=== PATIENT | male | born 1980 | race Caucasian/White ===

== ENCOUNTER 2016-10-06 08:10 | Inpatient (IN) | payer BC ==
[~2016-10-06] VITALS: Ht 172.7 cm; Wt 61.2 kg
[~2016-10-06 08:10] MED LIST: GABAPENTIN300 M1 PO; IBU-8800 MG PO; KEPPRA 500 MG500 MG PO; LORTAB 5/500 501 TAB PO; NEURONTIN 300M300 MG PO; PERCOCET 325 MG1 TA3 PO; PERCOCET 5/3251 EACH PO; PRILOSEC20 M1 PO; ZANTAC 150150 MG PO; ZITHROMAX 250M250 MG PO
[2016-10-06 08:55] VITALS: BP 138/71
[2016-10-06] MEDS ORDERED: VENTOLIN H0.09 MG/AC IH (09:19)
[2016-10-06 09:46] VITALS: BP 138/71
--- NOTE | 2016-10-06 10:24 | PHARMACY CLINIC NOTE ---
Patient Demographics Patient Demographics Admission date: 10/06/16 Date: 10/06/16 Time: 1023 Allergies Coded Allergies: levetiracetam (10/04/16) tramadol (10/04/16) HEIGHT- FT: 5 IN: 8.00 K.236 VTE General Information Disclaimer The following section includes nursing documentation that has been pulled in for pharmacy review. Patient's VTE score: 1 Patient's VTE Risk: VERY LOW RISK Clinical trial participant? No VTE prophylaxis [id number] VTE prophylaxis ordered? Yes Type of prophylaxis/treatment: VITOR at 1023
--- NOTE | 2016-10-06 11:27 | HISTORY AND PHYSICAL REPORT ---
Demographics: Admit date: 10/06/16 Chief complaint: Pneumonia/Pleuritic chest pain PRIMARY DIAGNOSIS: PNEUMONIA Allergies: Coded Allergies: levetiracetam (10/04/16) tramadol (10/04/16) History of present illness: History of present illness: 35 year old male diagnosed with RLL pneumonia on Oct 03 in office After presenting with fever to 101, chills, cough, pleuritic chest pain. Pneumonia was confirmed with x-ray. Patient was started on azithromycin. 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 Chest x-ray at that timeshowed a more dense consolidated right lower lobe pneumonia. I had the patient follow-up in my office. Despite room air sats in the mid 90s the patient admittedto not feeling any better in regards to his breathlessness or pain. Decision was made to admit the patient for IV antibiotics as he had failed outpatient treatment of his right lower lobe pneumonia. White blood cell count was elevated at 17,000. Past medical history: Family HX Family Hx Insignificant No Diabetes Yes CAD No Hypertension No Hyperlipidemia No Cancer No TB No Immunization HX DT/Tetanus 01/13/12 Flu NEVER Pneumonia NEVER TB Test in last year No General CAD? No Angina: No [place]: No Hypertension? No Hyperlipidemia? No CHF? No DVT? No PE? No COPD? No Asthma? No Anemia? No GERD? No Gastric ulcers? No GI Bleed? No Hernia? No Thyroid Problems? No Hypothyroidism? No CVA? No Seizures? Yes Diabetes? No Renal Insuffiency? No UTI? No Stones? Yes BPH? No GB Disease: No Nephritic Syndrome? No Asplenia? No Hepatitis? No Sickle Cell Disease? No Arthritis? No Migraines? No Cataracts? No Glaucoma? No MRSA? No HIV? No TB? No Anxiety? No Depression? Yes Cancer? No More? No Additional hx: unspecified Muscular Dystrophy Chronic Bilateral Leg Pain Past Surgical HX Previous Surgery?Y Appendix MUSCLE BIOPSY Current home meds: Reported Medications Gabapentin 300 MG PO BID #90 Azithromycin (Zithromax 250 Mg) 250 MG PO DAILY ALBUTEROL (Ventolin Hfa) 1 PUFF IH Q6H6 Social Hx: Smoking HX Tobacco No Alcohol Alcohol: No Hx of Drug Use Drug Use? No Review of systems: Constitutional chills, fever, weakness. Respiratory see HPI. Cardiovascular chest pain Gastrointestinal/Abdominal nausea Genitourinary no symptoms reported. Musculoskeletal back pain. Neurological Yes: no symptoms reported. Exam: Admission vital signs: 1ST Vital Signs Result Date Time Pulse Ox 89 10/06 854 O2 Delivery ROOM AIR 10/06 854 B/P 138/71 10/06 854 Temp 98.0 10/06 854 Pulse 96 10/06 854 Resp 18 10/06 854 O2 Flow Rate 2 10/06 0940 Additional information: Patient is pale appearing. Breathing is shallow. Deep breath causes obvious pain. Ear, nose, throat exam is unremarkable. Lungs have absent breath sounds in the right lung base. Heart is mildly tachycardic but without murmurs. Extremities are warm to the touch. Abdomen is thin and soft. The patient has no focal neurologic deficits Plan: Problem List 1. CAP (community acquired pneumonia) Plan: 1. IV levaquin and vancomycin to cover the possibility of MRSA 2. Sputum/Blood Cultures 3. Serial CBC 4. Toradol and Morphine for pain control
--- NOTE | 2016-10-06 12:20 | CONSULT NOTE ---
Pharmacokinetic Consult Date of consult: 10/06/16 Time of consult: 1217 Referring provider: DR. TRUJILLO Reason for consult: VANCOMYCIN DOSING Allergies: Coded Allergies: levetiracetam (10/04/16) tramadol (10/04/16) Home Medications: Reported Medications Gabapentin 300 MG PO BID #90 Azithromycin (Zithromax 250 Mg) 250 MG PO DAILY ALBUTEROL (Ventolin Hfa) 1 PUFF IH Q6H6 Height (feet): 5 Height (inches): 8.00 Medical History: CAD? No Angina: No [place]: No Hypertension? No Hyperlipidemia? No CHF? No DVT? No PE? No COPD? No Asthma? No Anemia? No GERD? No Gastric ulcers? No GI Bleed? No Hernia? No Thyroid Problems? No Hypothyroidism? No CVA? No Seizures? Yes Diabetes? No Renal Insuffiency? No UTI? No Stones? Yes BPH? No GB Disease: No Nephritic Syndrome? No Asplenia? No Hepatitis? No Sickle Cell Disease? No Arthritis? No Migraines? No Cataracts? No Glaucoma? No MRSA? No HIV? No TB? No Anxiety? No Depression? Yes Cancer? No More? No Additional hx: unspecified Muscular Dystrophy Chronic Bilateral Leg Pain Labs: SRCR=1.0 Problem List: 1. CAP (community acquired pneumonia) Plan: BASED ON PATIENT FACTORS, RECOMMEND VANCOMYCIN 1250 MG IV Q12H. WILL OBTAIN VANCOMYCIN TROUGH LEVEL AND ADJUST APPROPRIATE. at 8751
--- NOTE | 2016-10-06 12:20 | CONSULT NOTE ---
Pharmacokinetic Consult Date of consult: 10/06/16 Time of consult: 1217 Referring provider: DR. TRUJILLO Reason for consult: VANCOMYCIN DOSING Allergies: Coded Allergies: levetiracetam (10/04/16) tramadol (10/04/16) Home Medications: Reported Medications Gabapentin 300 MG PO BID #90 Azithromycin (Zithromax 250 Mg) 250 MG PO DAILY ALBUTEROL (Ventolin Hfa) 1 PUFF IH Q6H6 Height (feet): 5 Height (inches): 8.00 Medical History: CAD? No Angina: No [place]: No Hypertension? No Hyperlipidemia? No CHF? No DVT? No PE? No COPD? No Asthma? No Anemia? No GERD? No Gastric ulcers? No GI Bleed? No Hernia? No Thyroid Problems? No Hypothyroidism? No CVA? No Seizures? Yes Diabetes? No Renal Insuffiency? No UTI? No Stones? Yes BPH? No GB Disease: No Nephritic Syndrome? No Asplenia? No Hepatitis? No Sickle Cell Disease? No Arthritis? No Migraines? No Cataracts? No Glaucoma? No MRSA? No HIV? No TB? No Anxiety? No Depression? Yes Cancer? No More? No Additional hx: unspecified Muscular Dystrophy Chronic Bilateral Leg Pain Labs: SRCR=1.0 Problem List: 1. CAP (community acquired pneumonia) Plan: BASED ON PATIENT FACTORS, RECOMMEND VANCOMYCIN 1250 MG IV Q12H. WILL OBTAIN VANCOMYCIN TROUGH LEVEL AND ADJUST APPROPRIATE. at 4865
[2016-10-06 15:41] VITALS: BP 118/68
[2016-10-06 19:49] VITALS: BP 127/97
[2016-10-06 20:30] VITALS: BP 127/97
[2016-10-06 23:54] VITALS: BP 129/74
[2016-10-07] VITALS (7 sets, daily range): BP systolic 118–134; BP diastolic 62–69
[2016-10-07 07:02] LABS: HEMOGLOBIN 10.7 g/dL (14.1-18.0); LYMPH # 2.1 K/mm3 (0.7-4.5); LYMPH % 13.6 % (10-50)
--- NOTE | 2016-10-07 07:33 | ACUTE CARE PROGRESS NOTE (QUA) ---
Progress Notes Admission Date: 10/06/16 Antimicrobial stewardship: If this patient was administered antibiotics in the last 48 hours please complete the antimicrobial stewardship section of this template. Subjective Date 10/07/16 Time 0729 Note Patient reports persistent pain in the RIGHT lower ribs and chest worse with deep breathing and cough. His cough is starting to become productive and he is produced a small amount of green sputum. He is required oxygen intermittently with his lowest room air O2 sat being 89 percent. Toradol gives him minimal improvement in pain. Morphine does not give him any relief of pain. He is awake and alert. Still appears pale. Lung exam is unchanged with decreased breath sounds in the RIGHT lung base. Deep inspiration elicits pain. Heart has a regular rate and rhythm. Continue Levaquin to cover community-acquired pneumonia and vancomycin for the possibility of MRSA. Blood cultures were drawn in the emergency department yesterday morning. Sputum will be collected now that he is producing sputum. Repeat labs in a.m. White blood cell count had decreased slightly since yesterday. Objective Findings Last VS-Temp:99.2 B/P:128/62 Pulse:103 Resp:20 SaO2:99 ROOM AIR Last weight lbs:135 oz:0 K.235 Method:Floor Scales Laboratory Tests 10/07/16 0645: WBC 15.5 H, RBC 4.02 L, Hgb 10.7 L, Hct 33.7 L, MCV 83.8, RDW 13.1, Plt Count 437 H, MPV 8.2, Gran % 81.0 H, Gran # 12.5 H, Lymphocytes % 13.6, Monocytes % 4.6, Eosinophils % 0.6, Basophils % 0.3, Lymphocytes # 2.1, Monocytes # 0.7, Eosinophils # 0.1, Basophils # 0.0, PUBS MCHC 31.9, MCH 26.7 L 10/07/16 0445: Influenza Type A Ag NOT DETECTED, Influenza Type B Ag NOT DETECTED Assessment/Plan Problem List 1. CAP (community acquired pneumonia) 2. Anemia Patient condition Stable This inpt stay is expected to cross 2 MNs from start of care Yes Antibiotic Stewardship (2) Current Culture Results No result Infxn that will respond? Yes Right drug,dose,and route? Yes More targeted antbx? Yes How long atbx needed? 7
[2016-10-07 08:37] LABS: NEUTROPHILS 88 % (42-76)
[2016-10-08] VITALS (7 sets, daily range): BP systolic 117–139; BP diastolic 54–84
[2016-10-08 07:05] LABS: HEMOGLOBIN 10.5 g/dL (14.1-18.0); LYMPH # 1.5 K/mm3 (0.7-4.5); LYMPH % 10.7 % (10-50)
[2016-10-08 07:19] LABS: BILIRUBIN, INDIRECT 0.36 mg/dL (0-0.9)
--- NOTE | 2016-10-08 09:15 | ACUTE CARE PROGRESS NOTE (QUA) ---
Progress Notes Admission Date: 10/06/16 Subjective Date 10/08/16 Time 0913 Note Overall patient is feeling better. Less chest pain when he takes a deep inspiration. Still continues to have a little but of pleuritic-type pain in the right lower aspect of the chest. Minimal sputum production. No fever. On exam lungs are clear except for diminished airway movement and minimal expiratory crackles in the right lower lung field. No edema. No clubbing, alert, oriented. No rash. Heart rate regular. Objective Findings Last VS-Temp:97.9 B/P:129/68 Pulse:100 Resp:18 SaO2:100 ROOM AIR Last weight lbs:135 oz:0 K.235 Method:Floor Scales Assessment/Plan Problem List 1. CAP (community acquired pneumonia) 2. Anemia Patient condition Improving Plan: continue current care, opinion current antibiotics. Gram stain noted. Await formal culture. This inpt stay is expected to cross 2 MNs from start of care Yes Antibiotic Stewardship (2) Current Culture Results Microbiology 10/07 1636 SPUTUM: Sputum Culture - RES 10/07 1636 SPUTUM: Gram Stain - RES Infxn that will respond? Yes Right drug,dose,and route? Yes More targeted antbx? Yes How long atbx needed? 10 at 0914
--- NOTE | 2016-10-08 14:29 | CONSULT NOTE ---
Pharmacokinetic Consult Date of consult: 10/08/16 Time of consult: 1424 Referring provider: DR. TRUJILLO Reason for consult: VANCOMYCIN TROUGH Allergies: Coded Allergies: levetiracetam (10/04/16) tramadol (10/04/16) Home Medications: Reported Medications Gabapentin 300 MG PO BID #90 Azithromycin (Zithromax 250 Mg) 250 MG PO DAILY ALBUTEROL (Ventolin Hfa) 1 PUFF IH Q6H6 Height (feet): 5 Height (inches): 8.00 Medical History: CAD? No Angina: No [place]: No Hypertension? No Hyperlipidemia? No CHF? No DVT? No PE? No COPD? No Asthma? No Anemia? No GERD? No Gastric ulcers? No GI Bleed? No Hernia? No Thyroid Problems? No Hypothyroidism? No CVA? No Seizures? Yes Diabetes? No Renal Insuffiency? No UTI? No Stones? Yes BPH? No GB Disease: No Nephritic Syndrome? No Asplenia? No Hepatitis? No Sickle Cell Disease? No Arthritis? No Migraines? No Cataracts? No Glaucoma? No MRSA? No HIV? No TB? No Anxiety? No Depression? Yes Cancer? No More? No Additional hx: unspecified Muscular Dystrophy Chronic Bilateral Leg Pain Labs: Laboratory Tests 10/08/16 1240: Vancomycin Trough 6.7 10/08/16 0550: Ferritin 181, Total Bilirubin 0.5, Direct Bilirubin 0.14, Indirect Bilirubin 0.36, AST 23, ALT 47, Alkaline Phosphatase 171 H, Total Protein 6.9, Albumin 2.2 L, WBC 13.9 H, RBC 3.79 L, Hgb 10.5 L, Hct 32.1 L, MCV 84.6, RDW 13.0, Plt Count 455 H, MPV 8.1, Gran % 81.7 H, Gran # 11.3 H, Lymphocytes % 10.7, Monocytes % 5.5, Eosinophils % 1.7, Basophils % 0.3, Lymphocytes # 1.5, Monocytes # 0.8, Eosinophils # 0.2, Basophils # 0.0, PUBS MCHC 32.8, Retic Count 1.3, MCH 27.7 Microbiology 10/07 163 SPUTUM: Sputum Culture - RES 10/07 163 SPUTUM: Gram Stain - RES Problem List: 1. CAP (community acquired pneumonia) Plan: BASED ON PATIENT FACTORS AND VANCOMYCIN TROUGH LEVEL OF 6.7 MCG/ML, RECOMMEND NEW VANCOMYCIN DOSE OF 1 GM EVERY 8 HOURS. PHARMACY WILL CONTINUE TO MONITOR AND ADJUST DOSE/INTERVAL APPROPRIATE. at 1933
[2016-10-09] VITALS: BP 123/67
[2016-10-09 04:29] VITALS: BP 131/73
--- NOTE | 2016-10-09 06:46 | ACUTE CARE PROGRESS NOTE (QUA) ---
Progress Notes Subjective Date 10/09/16 Time 0644 Note Patient's pain has been better controlled since switched hydrocodone. He is getting the hydrocodone pretty regularly. This allows him to take a little bit deeper breath. His cough remains productive of small amounts of green sputum. He awakens easily this morning. Breath sounds are still quite distant in the RIGHT base with faint rale. Heart has regular rate and rhythm. Sputum culture is growing both gram-positive and negative organisms Repeat chest x-ray today. His pneumonia has improved and patient will be discharged home with oral narcotics to treat the pleuritic pain. If pneumonia is unchanged or worse and I will repeat his CT scan. Objective Findings Last VS-Temp:98.7 B/P:131/73 Pulse:85 Resp:18 SaO2:98 ROOM AIR Last weight lbs:135 oz:0 K.236 Method:Floor Scales Laboratory Tests 10/08/16 1240: Vancomycin Trough 6.7 Assessment/Plan Problem List 1. CAP (community acquired pneumonia) 2. Anemia Patient condition Stable This inpt stay is expected to cross 2 MNs from start of care Yes Antibiotic Stewardship (2) Infxn that will respond? Yes Right drug,dose,and route? Yes More targeted antbx? Yes at 0646
[2016-10-09 07:22] VITALS: BP 113/71
[2016-10-09] MEDS ORDERED: LEVOFLOXACIN 7750 M1 PO (12:01)
[2016-10-09] MEDS ORDERED: NORCO 325 MG-51 TAB PO (12:02)
[2016-10-09 12:32] VITALS: BP 113/71
--- NOTE | 2016-10-09 12:39 | RADIOLOGY REPORT PS360 ---
CHEST(2 VIEWS-NOT PORTABLE) ORDERING PHYSICIAN : Geovanny Carey MD PATIENT AGE: 35 years GENDER: Male INDICATION: RLL PNEUMONIA PROGRESS STUDY TECHNIQUE: PA and lateral chest COMPARISON: Previous 2 view chest 10/06/[address] chest 10/04/2016. FINDINGS Significant improved expansion on current chest film.. We again see the density filling the right posterior sulcus on lateral view. This reflects combination persisting area of consolidation along with small pleural effusion here at the posterior sulcus and posterior RLL On this lateral view there is also linear scarring & atelectasis is leading towards the inferior major fissure but major fissure appears to be normal position On PA film note minimal air bronchograms seen leading towards this area of persistent consolidation and density at the right posterior sulcus. Blunting and minimal fluid along the right CP angle also noted.. I understand the patient has normal white count no fever questions discrete against complications of abscess or empyema. However if pain symptoms persist you may want to consider a follow-up CT with IV contrast to exclude complicating features here.. I have again reviewed the prior CTA there is no evidence of pulmonary embolism on prior study. Findings discussed with Dr. Carey Heart estelle and mediastinal structures otherwise unremarkable. Chest wall & T-spine intact IMPRESSION Persistent area of consolidation w/ associated pleural effusion at posterior sulcus/ posterior right lower lobe. Better inspiration on today's CXR dated. But overall this area appears stable, to perhaps incrementally improved, vs recent CXR 10/06/2016. Additional comments in text
[2016-10-10 05:40] LABS: Folate (Folic Acid) 7.6 ng/mL (>3.0)
--- NOTE | 2016-10-10 07:10 | Discharge Summary ---
Demographics Admit date: 10/06/16 Discharge date: 10/09/16 Discharge diagnoses Problem List 1. CAP (community acquired pneumonia) 2. Anemia History of present illness History of present illness 35 year old male diagnosed with RLL pneumonia on Oct 03 in office After presenting with fever to 101, chills, cough, pleuritic chest pain. Pneumonia was confirmed with x-ray. Patient was started on azithromycin. 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 Chest x-ray at that timeshowed a more dense consolidated right lower lobe pneumonia. I had the patient follow-up in my office. Despite room air sats in the mid 90s the patient admittedto not feeling any better in regards to his breathlessness or pain. Decision was made to admit the patient for IV antibiotics as he had failed outpatient treatment of his right lower lobe pneumonia. White blood cell count was elevated at 17,000. Patient was admitted and placed on intravenous Levaquin and vancomycin. Vancomycin was to cover the possibility of MRSA pneumonia. Initially Toradol and morphine were used to try to relieve the pleuritic pain caused by the pneumonia and pleural effusion. These medicines did not help the pain. Patient was switched to oral hydrocodone which relieved his pain better. With use of oral hydrocodone he was able to take deeper breaths. With improved inspiration breath sounds began to improve in the RIGHT base although he still had significant rales. White count decreased daily. Patient remained afebrile during the hospitalization. On the the patient's pain was controlled with hydrocodone. Repeat chest x-ray showed improvement in the RIGHT lower lobe pneumonia has now appeared less dense. Patient was discharged home and will follow-up on an outpatient basis weekly. Medications Medications: Discharge meds are as noted. Follow up Follow up in office in: 7 DAYS with: Geovanny Carey MD at 0709
== END 2016-10-09 12:39 | disposition home or self-care (01) | DRG 195 ==
LOC: 2ND 08:10 → ICU 08:19 → 2ND 13:01
PROVIDERS: Family Medicine
DX: J18.9 Pneumonia, unspecified organism (principal); D64.9 Anemia, unspecified
CPT/HCPCS: J2405; J3370

== ENCOUNTER → 2016-10-25 | Outpatient (CLI) | payer BC ==
[~2016-10-25] MED LIST changes: +LEVOFLOXACIN 7750 M1 PO; +NORCO 325 MG-51 TAB PO; +VENTOLIN H0.09 MG/AC IH
--- NOTE | 2016-10-25 19:36 | RADIOLOGY REPORT PS360 ---
CHEST(2 VIEWS-NOT PORTABLE) HISTORY: S/P THOROCENTESIS ORDERING PHYSICIAN: Geovanny Carey MD PATIENT AGE: 36 years COMPARISON: Previous study from the same day FINDINGS: Right lower lobe pneumonia with elevated right hemidiaphragm and loculated right pleural effusion once again noted. No evidence of developing pneumothorax. The left lung is clear. IMPRESSION: Right lower lobe consolidation with effusion. No evidence of pneumothorax.
--- NOTE | 2016-10-25 19:38 | RADIOLOGY REPORT PS360 ---
CHEST(2 VIEWS-NOT PORTABLE) HISTORY: Follow-up thoracentesis, evaluate for pneumothorax S/P THOROCENTESIS ORDERING PHYSICIAN: Geovanny Carey MD PATIENT AGE: 36 years FINDINGS: There is elevated right hemidiaphragm with consolidation in the right lung base and posterior loculated effusion. No evidence of pneumothorax. Left lung is clear. IMPRESSION: As above, no evidence of pneumothorax
--- NOTE | 2016-10-26 05:53 | RADIOLOGY REPORT PS360 ---
US THORACENTESIS CLINICAL INDICATION: PLEURAL EFFUSION,RIGHT ORDERING PHYSICIAN: Geovanny Carey MD PATIENT AGE: 36 years COMPARISON: Previous radiographs and CT INDICATION: Complex right parapneumonic pleural effusion FINDINGS: Ultrasound right chest: Loculated pleural effusion noted in the right posterior hemithorax which has multiple synechiae. TECHNIQUE: Following obtaining informed consent under aseptic conditions and local anesthesia with 1% buffered lidocaine, 8 [place] thoracentesis catheter was placed in the loculated effusion in the right posterior chest. The patient did experience a vasal vagal reaction which subsided with the patient lying on his left side. Approximately 7 cc of purulent appearing fluid was aspirated and sent to the lab for analysis. Aside from a vasovagal reaction, the patient tolerated procedure well without evidence of complications. Post thoracentesis radiograph showed no evidence of pneumothorax. Dr. Carey was notified of the appearance of the fluid. IMPRESSION: Successful diagnostic thoracentesis under sonographic guidance as detailed above
[2016-10-27 10:24] LABS: BODY FLUID WBC >99999 MM
[2016-10-27 10:25] LABS: BODY FLUID RBC 800000 /mm3
[2016-10-27 10:26] LABS: BODY FLUID MONONUCLEAR 0 %; BODY FLUID POLY 100 %
== END ==
LOC: RAD 11:55
PROVIDERS: Family Medicine
PROC: 0W9930Z Drainage of Right Pleural Cavity with Drainage Device, Percutaneous Approach (ICD-10-PCS; principal; 2016-10-25)
DX: J90 Pleural effusion, not elsewhere classified (principal)